=== PATIENT | female | born 1995 | race Caucasian/White ===

== ENCOUNTER → 2018-03-14 12:22 | Outpatient (CLI) | payer OTHER, SELFPAY ==
[2018-03-14 15:21] LABS: Rubella Antibody IgG 6.7 IU/mL (>15)
[2018-03-14 17:56] LABS: Urine N gonorrhoeae NOT DETECTED
[2018-03-14 17:57] LABS: Urine Chlamydia NOT DETECTED
[2018-03-16 14:22] LABS: HSV 2 IGG AB < 0.90 index (< 0.90)
[2018-03-21 09:50] LABS: Rapid Plasma Reagin NON-REACTIVE
== END ==
PROVIDERS: PCP Family Medicine; Visit Provider Family Medicine
DX: Z34.91 Encounter for supervision of normal pregnancy, unspecified, first trimester (principal)
CPT/HCPCS: 36415; 86592; 86695; 86696; 86762; 86787; 87086; 87491; 87591

== ENCOUNTER → 2018-05-12 12:11 | Outpatient (CLI) | payer OTHER, SELFPAY ==
--- NOTE | 2018-05-12 12:11 | DI.US.S_ITS ---
PROCEDURE: US OB >= 14 WEEKS FETUS INDICATIONS: 14 weeks OUTSIDE/PRIOR DATING DATA: Last menstrual period (LMP): Not available. LMP-based estimated date of delivery (LUCIAN): Not available. First dating scan (date and location): 03/14/18. Estimated date of delivery (LUCIAN) from first dating scan: 10/02/18. TECHNIQUE: Real-time scanning was performed of the fetus, with image documentation and biometric measurements. Endovaginal scanning: Not necessary for this study. COMPARISON: None. FINDINGS: General: A single living intrauterine gestation is present. Presentation: Vertex. Placenta: Placental position is anterior, without previa. Amniotic fluid index: 14.5 cm, normal range is 5-24 cm. heart rate: 158 beats per minute. Maternal cervical canal: 4.0 cm long. Normal lower limit is 2.5 cm. biometrics: Biparietal diameter: 4.7 cm, 20 weeks 1 day Head circumference: 17.7 cm, 20 weeks 1 day Abdominal circumference: 14.4 cm, 19 weeks 5 days Femur length: 3.2 cm, 19 weeks 6 days Estimated gestational age from initial scan: 19 weeks 4 days Composite gestational age from present scan: 20 weeks 0 days Estimated weight and percentile: 316 g, 61st percentile Measurement variability for biometric dating: +/- 7 days from 14 weeks to 15 weeks 6 days gestation, +/- 10 days from 16 weeks to 21 weeks 6 days gestation, +/- 2 weeks from 22 weeks to 27 weeks 6 days gestation, +/- 3 weeks for 28 weeks gestation or later. weight reference: 4500 g or EFW >90/95% is considered macrosomia or large for gestational age. EFW <10% is small for gestational age. EFW 5% or less is considered intra-uterine growth restriction. Anatomic survey: Neuro: Ventricles are non-dilated at less than 10 mm. Cisterna magna is normal at 3-11 mm. Cerebellum is normal in size and morphology. Nuchal skin fold: Normal at less than 6 mm between 14-21 weeks gestational age. Face: Nose and lips, facial profile are poorly seen due to positioning. Spine: No evidence for spina bifida. Heart: 4-chambered heart is present, with normal ventricular outflow tracts. Diaphragm: Diaphragm is intact. Stomach: Left-sided stomach is present. Kidneys: No hydronephrosis. Normal is less than 5 mm in 2nd trimester, less than 7 mm in 3rd trimester. Cord: 3-vessel cord has orthotopic insertion. Bladder: Normal in size. Extremities: All 4 extremities identified. IMPRESSION: No anomalies. However, facial profile was not well visualized due to positioning and therefore a limited followup OB ultrasound could be obtained to more accurately assess that area if clinically desired. Delivery date is projected to be centered on 10/02/16. Dictated by: Gui Wayne M.D. on 05/12/2018 at 14:12 Approved by: Gui Wayne M.D. on 05/12/2018 at 14:15
== END ==
PROVIDERS: PCP Family Medicine; Visit Provider Family Medicine
DX: Z34.02 Encounter for supervision of normal first pregnancy, second trimester (principal); Z3A.20 20 weeks gestation of pregnancy
CPT/HCPCS: 76811

== ENCOUNTER → 2018-05-30 12:36 | Outpatient (CLI) | payer OTHER, SELFPAY ==
--- NOTE | 2018-05-30 12:37 | DI.US.S_ITS ---
PROCEDURE: US OB FOLLOW UP INDICATIONS: PROFILE OUTSIDE/PRIOR DATING DATA: Last menstrual period (LMP): Not available. LMP-based estimated date of delivery (LUCIAN): Not available. First dating scan (date and location): 03/14/18. Estimated date of delivery (LUCIAN) from first dating scan: 10/02/18 TECHNIQUE: Real-time scanning was performed of the fetus, with image documentation. Endovaginal scanning: No COMPARISON: [facility], , OB >= 14 WEEKS FETUS, 05/12/2018, 13:01. [facility], , US OB <= 14 WEEKS FETUS, 03/14/2018, 11:48. FINDINGS: A single living intrauterine gestation is present. Presentation: Vertex. Placenta: Placental position is anterior, with marginal previa with the inferior margin of the placenta extending to nearly the internal cervical os level. Amniotic fluid index: Not obtained. heart rate: 155 beats per minute. Maternal cervical canal: 3.4 cm long. Normal lower limit is 2.5 cm. Estimated gestational age from initial scan: 22 weeks 1 day Normal appearance of the facial profile.. IMPRESSION: 1. Single living IUP redemonstrated. 2. Normal facial profile. 3. Marginal placenta previa. Followup recommended. Dictated by: Tavon ROSE Interpreted: Carlee Quintana MD on 05/30/2018 at 13:42 Approved by: Carlee Quintana M.D. on 05/30/2018 at 15:37
== END ==
PROVIDERS: PCP Family Medicine; Visit Provider Family Medicine
DX: O28.3 Abnormal ultrasonic finding on antenatal screening of mother (principal); Z3A.22 22 weeks gestation of pregnancy
CPT/HCPCS: 76816

== ENCOUNTER → 2018-06-15 13:23 | Outpatient (CLI) | payer OTHER, SELFPAY ==
--- NOTE | 2018-06-15 13:24 | DI.US.S_ITS ---
PROCEDURE: US OB FOLLOW UP INDICATIONS: MARGINAL PREVIA OUTSIDE/PRIOR DATING DATA: Last menstrual period (LMP): Not available. LMP-based estimated date of delivery (LUCIAN): Not available. First dating scan (date and location): 03/14/18. Estimated date of delivery (LUCIAN) from first dating scan: 10/02/18. TECHNIQUE: Real-time scanning was performed of the fetus, with image documentation. Endovaginal scanning: No COMPARISON: [facility], OB FOLLOW UP, 05/30/2018, 12:41. FINDINGS: A single living intrauterine gestation is present. Presentation: Vertex. Placenta: Placental position is anterior, without previa. Amniotic fluid index: Not evaluated. heart rate: 137 beats per minute. Maternal cervical canal: 3.4 cm long. Estimated gestational age from initial scan: 24 weeks 3 days. IMPRESSION: Resolved placenta previa with the inferior aspect of the anterior placenta 3.7 cm from the internal cervical os. Dictated by: Tavon Fernandez [facility] Interpreted: Roxanna Mancia MD on 06/15/2018 at 14:47 Approved by: Roxanna Mancia M.D. on 06/15/2018 at 17:20
== END ==
PROVIDERS: PCP Family Medicine; Visit Provider Family Medicine
DX: O44.02 Complete placenta previa NOS or without hemorrhage, second trimester (principal); Z3A.24 24 weeks gestation of pregnancy
CPT/HCPCS: 76816

== ENCOUNTER → 2018-07-11 07:41 | Outpatient (CLI) | payer OTHER, SELFPAY ==
[2018-07-11 09:25] LABS: Add Manual Diff / Slide Review NO; Basophils Percent Auto 0.2 % (0-2); Eosinophils Percent Auto 0.5 % (2-4); Hemoglobin 12.6 g/dL (12.0-16.0); Lymphocytes Percent Auto 11.8 % (25-40); Mean Corpuscular HGB Conc 34.1 % (30-36); Mean Corpuscular Hemoglobin 30.7 PG (26-34); Mean Corpuscular Volume 89.9 fL (80-100); Monocytes Percent Auto 6.8 % (3-14); Neutrophils Absolute Auto 6900 /uL (3000-5900); Neutrophils Percent Auto 80.7 % (50-75); Platelet Count 129 X10^3/uL (150-400); Red Blood Cell Count 4.11 X10^6/uL (4.0-5.2); Red Cell Distribution Width 12.8 % (11.6-14.8); White Blood Cell Count 8.6 X10^3/uL (4.5-11.0)
[2018-07-11 09:46] LABS: GTT (PREG) 1 Hour PP 50gm Dose 78 mg/dL (76-139)
== END ==
PROVIDERS: PCP Family Medicine; Visit Provider Family Medicine
DX: Z34.02 Encounter for supervision of normal first pregnancy, second trimester (principal)
CPT/HCPCS: 36415; 82950; 85025

== ENCOUNTER → 2018-08-09 08:52 | Outpatient (CLI) | payer OTHER, SELFPAY | PROVIDERS: PCP Family Medicine; Visit Provider Family Medicine | DX: O26.843 Uterine size-date discrepancy, third trimester (principal); Z53.9 Procedure and treatment not carried out, unspecified reason ==

== ENCOUNTER → 2018-08-23 11:25 | Outpatient (CLI) | payer OTHER, SELFPAY ==
[2018-08-23 16:17] LABS: Urine N gonorrhoeae NOT DETECTED
[2018-08-23 16:20] LABS: Urine Chlamydia NOT DETECTED
== END ==
PROVIDERS: PCP Family Medicine; Visit Provider Family Medicine
DX: Z34.93 Encounter for supervision of normal pregnancy, unspecified, third trimester (principal); Z3A.34 34 weeks gestation of pregnancy
CPT/HCPCS: 87491; 87591

== ENCOUNTER → 2018-09-06 10:54 | Outpatient (CLI) | payer OTHER, SELFPAY | PROVIDERS: PCP Family Medicine; Visit Provider Family Medicine | DX: Z13.9 Encounter for screening, unspecified (principal) ==

== ENCOUNTER → 2018-09-13 10:32 | Outpatient (CLI) | payer OTHER, SELFPAY | PROVIDERS: PCP Family Medicine; Visit Provider Family Medicine | DX: Z13.9 Encounter for screening, unspecified (principal) ==

== ENCOUNTER 2018-09-28 02:13 | Inpatient (IN) | payer OTHER, SELFPAY ==
[2018-09-28] VITALS (9 sets, daily range): BP systolic 100–120; BP diastolic 69–80; PULSE 65–83; RESP 11–15; TEMP 36.3–36.6; O2SAT 96–100
[2018-09-28 03:15] LABS: Add Manual Diff / Slide Review NO; Basophils Absolute Auto 100 /uL (0-100); Basophils Percent Auto 0.4 % (0-2); Eosinophils Absolute Auto 0 /uL (0-450); Eosinophils Percent Auto 0.4 % (2-4); Hematocrit 36.8 % (36-46); Hemoglobin 12.4 g/dL (12.0-16.0); Lymphocytes Absolute Auto 2600 /uL (1100-4500); Lymphocytes Percent Auto 20.3 % (25-40); Mean Corpuscular HGB Conc 33.7 % (30-36); Mean Corpuscular Hemoglobin 29.3 PG (26-34); Mean Corpuscular Volume 86.9 fL (80-100); Monocytes Absolute Auto 800 /uL (0-900); Monocytes Percent Auto 6.1 % (3-14); Neutrophils Absolute Auto 9300 /uL (1500-7000); Neutrophils Percent Auto 72.8 % (50-75); Platelet Count 159 X10^3/uL (150-400); Red Blood Cell Count 4.24 X10^6/uL (4.0-5.2); Red Cell Distribution Width 12.9 % (11.6-14.8); White Blood Cell Count 12.7 X10^3/uL (4.5-11.0)
[2018-09-28] MEDS: PENICILLIN G POTASSIUM 5,000,000 UNIT in DEXTROSE 5% IN WATER 250 ML IV (03:15)
--- NOTE | 2018-09-28 04:47 | PM.OBHP.1 ---
OB HPI Date/Time Date of admission: 09/28/18 Date Patient Seen: 09/28/18 Time Patient Seen: 04:20 History of Present Condition Chief complaint: OBS : 1 Para: 0 Estimated Date of Delivery: 10/02/18 Estimated Gestational Age (weeks): 39w3d Narrative: Hillary Rao is a 23 year old at 39w3d who presented with regular painful contractions. She reports having contractions starting around 1:30am. Since then, they have been increasing in frequency and intensity. No vaginal bleeding or LOF prior to presentation. She has been feeling baby move regularly. Indications Other reason(s) for admission: active labor History of Present care: good care, initiated at week # (11) and pounds weight gain (71) Dating criteria: LMP confirmed by 1st trimester US Ultrasounds: normal mid trimester US Obstetrical complications: none Preadmission Labs Blood type: A (+) positive -: Antibody screen: negative, GBS status: positive, HBsAG: negative, HIV: negative and RPR/VDLR: negative -: Chlamydia screen: detected (negative ARTIS and negative 3rd trimester screening) and Gonorrhea screen: not detected -: Rubella: not immune and Varicella: immune HCT: 37 HCAB: negative Sequential screen: negative Urine: negative 1 hr GTT: 78 Evaluation Evaluation Baseline heart rate: 150 Variability: Moderate (11-25) monitor accelerations: Present monitor decelerations: Variable Contraction Frequency (minutes): 2 Uterine Contraction Intensity: Strong/Firm Category of Tracing: II Cervical dilation (cm): 8 Cervical effacement (%): 100 station: 0 Laboratory results: Laboratory Tests 09/28/18 02:58 WBC 12.7 H RBC 4.24 Hgb 12.4 Hct 36.8 MCV 86.9 MCH 29.3 MCHC 33.7 RDW 12.9 Plt Count 159 Neut % (Auto) 72.8 Lymph % (Auto) 20.3 L [place] % (Auto) 6.1 Eos % (Auto) 0.4 L Baso % (Auto) 0.4 Neut # (Auto) 9300 H Lymph # (Auto) 2600 [place] # (Auto) 800 Eos # (Auto) 0 Baso # (Auto) 100 Meds Home Medications Medication Instructions Recorded Confirmed Type breast pump #1 each 07/03/18 Rx ranitidine 150 mg capsule 150 mg PO DAILY #30 cap 07/03/18 Rx omeprazole 40 mg capsule,delayed 40 mg PO DAILY #30 cap 08/18/18 Rx release breast pump #1 each 09/05/18 Rx Allergies Allergy/AdvReac Type Severity Reaction Status Date / Time No Known Drug Allergies Allergy Unverified 04/05/18 09:58 Exam Narrative Exam Narrative: Gen: NAD, laying comfortably in bed, appears well CV: RRR, no murmurs Resp: clear to auscultation bilaterally Abd: soft, nondistended, gravid Ext: trace edema Objective Labs Result Diagrams: 09/28/18 02:58 Labs: Laboratory Results - last 24 hr 09/28/18 02:58 WBC 12.7 H RBC 4.24 Hgb 12.4 Hct 36.8 MCV 86.9 MCH 29.3 MCHC 33.7 RDW 12.9 Plt Count 159 Neut % (Auto) 72.8 Lymph % (Auto) 20.3 L [place] % (Auto) 6.1 Eos % (Auto) 0.4 L Baso % (Auto) 0.4 Neut # (Auto) 9300 H Lymph # (Auto) 2600 [place] # (Auto) 800 Eos # (Auto) 0 Baso # (Auto) 100 Assessment and Plan (1) 39 weeks gestation of : Current visit: Yes Status: Acute (2) Active labor: Current visit: Yes Status: Acute Plan: Plan: 23yo at 39w3d who presented in active labor. complicated by chlamydia in the first trimester with negative 3rd trimester screening. GBS positive, Rh positive. - Expectant management, anticipate - GBS positive, start penicillin prophylaxis - FHT with single prolonged deceleration that resolved with positional changes and oxygen, then with several variable decels. Most likely due to rapid cervical change with pt progressing from 2-3cm to 8cm in < 1 hour. All now resolved and FHT reassuring with category I tracing and good accelerations. - Epidural for pain control in place
[2018-09-28] MEDS: LACTATED RINGERS 1,000 ML 100 ML IV ×4 (04:50→17:02)
[2018-09-28] MEDS: PENICILLIN G POTASSIUM 3,000,000 UNIT/50 ML FROZ.PIGGY 100 UNIT IV ×2 (06:50→10:24)
[2018-09-28] MEDS: OXYTOCIN PREMIX 30 UNIT/500 ML PLAST..BAG IV (10:56)
--- NOTE | 2018-09-28 13:09 | PM.OBPNLAB ---
Date/Time Date Patient Seen: 09/28/18 Time Patient Seen: 12:30 Pain Control Pain control: tolerating well and epidural Pelvic Exam Dilation (cm): 10 Effacement (%): 100 station: +2 Amniotic membrane status: Ruptured Contractions Monitor mode: External Pitocin rate (mU/min): 6 Contraction frequency (min): 3 Contraction pattern: Regular Contraction intensity: Strong/Firm Status status: Category l Heart Rate Baseline: 130 Monitor Accelerations: Present Monitor Decelerations: Absent Monitor Variability: Moderate Assessment and Plan Comments: 23yo at 39w3d who presented in active labor. complicated by chlamydia in the first trimester with negative 3rd trimester screening. GBS positive, Rh positive. Pitocin was initiated in the 2nd stage of labor due to significant spacing between contractions. Pt has now been pushing for 3.5 hours with descent from 0 to 2+ station, however with very minimal descent over the past hour. Maternal effort is starting to wane. Dr Rice came to assess for pelvic adequacy. She was noted to have a narrow pelvic inlet laterally, and relatively tight perineal tissue. Discussed with the pt the option of forceps delivery vs , including risks and benefits. There was concern for significant perineal/vaginal lacerations with forceps. The pt elected to proceed with for delivery for failure to descend. The full risks and benefits of were discussed with the pt. Risks including infection, bleeding/hemorrhage, damage to other organs such as the bowel and bladder, and injury to the baby were discussed. The pt did consent to blood transfusion if medically necessary. The pt agreed to surgery, and consent forms were signed. The pt will receive 2g of Ancef prior to surgery. Plan to use epidural for pain control during surgery. FHT remain reassuring.
--- NOTE | 2018-09-28 13:10 | PM.PREOP ---
Pre-operative Note Interval Note History & Physical reviewed/Exam performed by Physician: Yes Changes to H&P: No H&P completed within 30 days and has changed as indicated here:: for failure to descend and prolonged 2nd stage of labor
[2018-09-28] MEDS: CEFAZOLIN 2 GM/100 ML FROZ.PIGGY IV (13:44)
--- NOTE | 2018-09-28 14:07 | SUR.OPER ---
Supine on Padded OR bed, head on pillow, safety belt at thigh, arms secured on padded arm boards at <90 degrees abduction. Bump under right buttock. Legs uncrossed with pillow under knees, gel pad to heels, tape over blanket to lower legs.
--- NOTE | 2018-09-28 14:28 | SUR.OPER ---
OUT COMES ACHIEVED
--- NOTE | 2018-09-28 14:41 | PM.OP.1 ---
Operative Date/Time/Diagnoses Date of procedure: 09/28/18 Time of procedure: 01:45 Pre-op diagnosis: 39w3d gestation GBS positive Rh positive Failure to descend Post-op diagnosis: same Procedure & Clinicians Procedure: Primary Same procedure as scheduled: Yes Indications: Failure to descend Surgeon: Haley Cordova Assistant Director Of Nursing: Louise Rice Click Yes if Unassisted: No Anesthesia Type: Epidural Operative Notes Findings: Normal uterus, ovaries, and tubes Closure Type: primary Specimen(s): none sent Applied: catheter Estimated Blood Loss (mL): 600 Blood products transfused: none Procedure in detail: OPERATIVE COURSE: The patient was taken to the operating room where epidural anesthesia was rebolused and found to be adequate. She was then prepared and draped in the normal sterile fashion in the dorsal supine position with a leftward tilt. Anesthesia was tested and found to be adequate. A Pfannensteil skin incision was then made with the scalpel and carried through to the underlying layer of fascia with the scalpel. The fascia was incised in the midline and the incision extended laterally with the Corona scissors. The superior aspect of the fascial incision was then grasped with Giuliano clamps, elevated, and the underlying rectus muscles dissected off bluntly and sharply where needed. Attention was then turned to the inferior aspect of the incision which, in a similar fashion, was grasped, tented up with Giuliano clamps, and the rectus muscle dissected off bluntly and sharply with Corona scissors. The rectus muscles were then in the midline, and the peritoneum was identified and entered bluntly. The peritoneal incision was then extended with good visualization of the bladder. The bladder blade was then inserted and the vesicouterine peritoneum identified, grasped with pick-ups and entered sharply with the Metzenbaum scissors. The incision was then extended laterally and the bladder flap created digitally. The bladder blade was then reinserted and the lower uterine segment incised in a transverse fashion with the scalpel. The uterine incision was then extended superolaterally by pulling superolaterally on both sides. The bladder blade was removed the 's head was flexed out of ROT position and delivered atraumatically. The nose and mouth were suctioned with bulb suction and the cord was clamped and cut. The was handed off to the waiting NICU staff. Cord blood was collected for Rh status. The placenta was then delivered by manual extraction due to cord avulsion. The uterus was cleared of all clots and debris. The uterine incision was repaired with O-Chromic in a running, locked fashion. A second layer of the same suture was used to obtain excellent hemostasis. The bladder flap was repaired with 2-O Vicryl. The gutters were cleared of all clots and irrigated with warmed saline. Hysterotomy was investigated and found to be hemostatic. The peritoneum was closed with 2-O Vicryl. The fascia was reapproximated with 1-Vicryl in a running fashion. The subcutaneous tissue was reapproximated with 3-O Vicryl. The skin was closed with 4-O Vicryl. ROM APPEARANCE: Clear BABY A DELIVERY TIME: 13:59 BABY A OUTCOME: Viable BABY A SEX: Male BABY A WEIGHT: 9lb1oz BABY A NUCHAL CORD: None BABY A # CORD VESSELS: 3 BABY A 1 MINUTE: 7 BABY A 5 MINUTES: 9 PLACENTA DELIVERY TIME: 14:01 PLACENTAL DELIVERY TYPE: Manual extraction PLACENTA APPEARANCE: Intact SPONGE AND NEEDLE COUNTS: Correct x3. DRESSING: Aquacel ANTICOAGULATION: SCDs applied prior to Surgery: Yes Preop antibiotics given (see MAR). The patient was taken to recovery room having tolerated procedure well. Complications: none Condition: stable Disposition: PACU Plan for aftercare: Normal care
[2018-09-28] MEDS: ACETAMINOPHEN IV 1,000 MG/100 ML VIAL 400 MG IV (14:50)
[2018-09-28] MEDS: fentaNYL 100 MCG/2 ML INJ 50 MCG IV ×4 (14:50→18:03)
[2018-09-28] MEDS: OXYCODONE/ACETAMINOPHEN 5/325 TABLET 2 TAB PO (19:45)
[2018-09-28] MEDS: PANTOPRAZOLE 40 MG TABLET PO (19:46)
[2018-09-28] MEDS: MAG HYDROX/ALUM/SIMETH 30 ML UDC PO (19:47)
[2018-09-28] MEDS: KETOROLAC 30 MG/ML VIAL IV (20:37)
[2018-09-29] MEDS: KETOROLAC 30 MG/ML VIAL IV ×2 (02:35→08:20)
[2018-09-29] MEDS: OXYCODONE/ACETAMINOPHEN 5/325 TABLET 2 TAB PO ×4 (03:57→20:57)
[2018-09-29] MEDS: MAG HYDROX/ALUM/SIMETH 30 ML UDC PO (04:30)
[2018-09-29 06:24] LABS: Add Manual Diff / Slide Review NO; Basophils Absolute Auto 100 /uL (0-100); Basophils Percent Auto 0.8 % (0-2); Eosinophils Absolute Auto 0 /uL (0-450); Eosinophils Percent Auto 0.1 % (2-4); Hemoglobin 11.1 g/dL (12.0-16.0); Lymphocytes Absolute Auto 1600 /uL (1100-4500); Lymphocytes Percent Auto 16.4 % (25-40); Mean Corpuscular HGB Conc 34.6 % (30-36); Mean Corpuscular Hemoglobin 29.9 PG (26-34); Mean Corpuscular Volume 86.5 fL (80-100); Monocytes Absolute Auto 700 /uL (0-900); Monocytes Percent Auto 6.9 % (3-14); Neutrophils Absolute Auto 7200 /uL (1500-7000); Neutrophils Percent Auto 75.8 % (50-75); Platelet Count 113 X10^3/uL (150-400); Red Cell Distribution Width 13.2 % (11.6-14.8); White Blood Cell Count 9.6 X10^3/uL (4.5-11.0)
[2018-09-29] MEDS: PANTOPRAZOLE 40 MG TABLET PO (08:15)
[2018-09-29 08:20] VITALS: TEMP 37.3
[2018-09-29] MEDS: DOCUSATE 250 MG CAPSULE PO (08:31)
[2018-09-29] MEDS: FERROUS GLUCONATE 324 MG TABLET PO (08:31)
[2018-09-29] MEDS: PRENATAL VIT,CALC/IRON/FOLIC 1 TABLET 1 TAB PO (08:31)
--- NOTE | 2018-09-29 13:26 | P.PNOB_ITS ---
Subjective - OB Patient comments: no complaints baby status: doing well feeding status: exclusively breast feeding Narrative: The pt this afternoon reports that her pain is currently 3-4/10. She feels it is adequately controlled. She has not yet been out of bed, and her bee catheter remains in place. As per nursing, the pt has removed to move t hus far. She is passing flatus. Her lochia is decreasing appropriately. Date Patient Seen: 09/29/18 Time Patient Seen: 12:30 Exam Vital Signs (past 8 hours): - 09/29/18 08:20 Temperature 99.1 F Oxygen Delivery Method Room Air Narrative Exam Narrative: Gen: NAD, laying comfortably in bed, appears well, holding very still CV: RRR, no murmurs Resp: clear to auscultation bilaterally Abd: soft, appropriately tender, normoactive bowel sounds, nondistended, dressing with several small (< 1cm) areas of dried blood Ext: trace edema Objective Labs Result Diagrams: 09/29/18 06:10 Labs: Laboratory Results - last 24 hr 09/29/18 06:10 WBC 9.6 RBC 3.70 L Hgb 11.1 L Hct 32.0 L MCV 86.5 MCH 29.9 MCHC 34.6 RDW 13.2 Plt Count 113 L Neut % (Auto) 75.8 H Lymph % (Auto) 16.4 L [place] % (Auto) 6.9 Eos % (Auto) 0.1 L Baso % (Auto) 0.8 Neut # (Auto) 7200 H Lymph # (Auto) 1600 [place] # (Auto) 700 Eos # (Auto) 0 Baso # (Auto) 100 Assessment & Plan (1) 39 weeks gestation of : Status: Acute Current Visit: Yes (2) Active labor: Status: Acute Current Visit: Yes (3) S/P : Status: Acute Current Visit: Yes (4) Failure of descent in labor, delivered, current hospitalization: Status: Acute Current Visit: Yes Plan Comments: 23yo POD #1 s/p primary for failure to descend. Pt doing relatively well , but has not yet ambulated. Pain does not seem to be the issue, more motivation at this point. Will have nursing remove bee catheter now to help prompt to get out of bed. - Normal care - Re-enforced the importance of ambulation in the recovery process. Remove bee now. Up to the bathroom within 1 hour. - Continue support Time Spent With Patient Total time spent is greater than 50% in coordination of care (as documented) at patient's floor/unit and/or counseling patient: 25 - 35 minutes
[2018-09-29] MEDS: IBUPROFEN 600 MG TABLET PO ×2 (15:30→22:16)
[2018-09-29 20:57] VITALS: TEMP 37.1
[2018-09-30 01:07] VITALS: TEMP 36.9
[2018-09-30] MEDS: OXYCODONE/ACETAMINOPHEN 5/325 TABLET 2 TAB PO ×5 (01:07→20:37)
[2018-09-30] MEDS: IBUPROFEN 600 MG TABLET PO ×2 (05:05→14:46)
[2018-09-30 09:56] VITALS: TEMP 36.8
[2018-09-30] MEDS: PRENATAL VIT,CALC/IRON/FOLIC 1 TABLET 1 TAB PO (10:02)
[2018-09-30] MEDS: DOCUSATE 250 MG CAPSULE PO (10:02)
[2018-09-30] MEDS: FERROUS GLUCONATE 324 MG TABLET PO (10:03)
[2018-09-30] MEDS: PANTOPRAZOLE 40 MG TABLET PO (10:03)
--- NOTE | 2018-09-30 10:38 | PM.OBDS.1 ---
Discharge Providers Date of admission: 09/28/18 02:13 Primary care physician: Haley Cordova MD Consults: 09/28/18 15:15 Consult to Network Engineer Routine Comment: Discharge provider: Haley Cordova MD Discharge Date: 10/01/18 Summary Date Patient Seen: 10/01/18 Time Patient Seen: 10:30 Hospital Course: The patient presented in active labor. She received an epidural for pain control. She received adequate GBS prophylaxis with penicillin prior to delivery. She progressed to complete and then pushed for more than 3.5 hr. Due to failure to descend, the decision was made to proceed with primary . The surgery was without complications. She delivered a viable baby boy a at 1:59 p.m. on 09/28/2018 with Apgars 7/9. After surgery, the patient recovered without issues. At the time of discharge she was voiding, ambulating, passing flatus without difficulty. Her lochia was decreasing appropriately. She is breast-feeding with good latch. Her pain was well controlled. She will be discharged home to follow up in clinic in 1 week for incision check. She is considering OCPs for control, but is undecided. Peripartum Data Infant Delivery Method: Section Procedures: Primary complications: none 1: Gender: Male Disposition of : home Discharge Diagnosis (1) 39 weeks gestation of : Status: Acute (2) Active labor: Status: Acute (3) S/P : Status: Acute (4) Failure of descent in labor, delivered, current hospitalization: Status: Acute Status at Discharge Functional status at discharge: independent ambulation Overall status at discharge: patient is progressing back to baseline Time Spent with Patient Total time spent providing and/or coordinating discharge services: Greater than 30 minutes Objective Labs Result Diagrams: 09/29/18 06:10 Discharge Plan Discharge Plan Patient Disposition: Home Discharge Med Rec/Prescriptions Prescriptions: New acetaminophen 325 mg Tablet 650 mg PO Q6HR PRN (Reason: As Needed For Fever/Mild Pain) Qty: 30 RF: 0 oxycodone-acetaminophen 5-325 mg Tablet 2 tab PO Q4HR PRN (Reason: Pain, Severe (7-10)) Qty: 50 RF: 0 ibuprofen 600 mg Tablet 600 mg PO Q6HR PRN (Reason: As Needed For Fever/Mild Pain) Qty: 30 RF: 0 docusate sodium 250 mg Capsule 250 mg PO DAILY Qty: 30 RF: 0 ferrous gluconate 324 mg (38 mg iron) Tablet 324 mg PO DAILY Qty: 30 RF: 0 Prenatabs Rx 29 mg iron- 1 mg Tablet 1 tab PO DAILY Qty: 30 RF: 0 Continued omeprazole 40 mg capsule,delayed release(DR/EC) 40 mg PO DAILY Qty: 30 RF: 3 breast pump device .ROUTE .MEDSUPPLY Qty: 1 RF: 0 breast pump device .Route .MEDSUPPLY Qty: 1 RF: 0 Discontinued ranitidine HCl 150 mg capsule 150 mg PO DAILY Qty: 30 RF: 2 Follow up/Referrals: Haley Cordova MD [Primary Care Provider] - 1 Week (October 06Tuesday, at 12:15pm with Dr Cordova for dressing removal and incision check. November 10Tuesday, at 11:30am with Dr Cordova for 6 week post check) Provider Discharge Instructions Diet: Diet as Tolerated and Regular Activity: No intercourse for 6 weeks No driving until able to rotate easily and off narcotic pain medications No heavy lifting Skin/Wound/Dressing Care Report to your healthcare provider any signs of infection, such as:: chills, fever, increased pain, unusual drainage and unusual redness Visit Report/Discharge Packet Instructions: DI for Discharge Data Primary Care Provider: Haley Cordova Attending Provider: Haley Cordova Admit Date/Time: 09/28/18 02:13
--- NOTE | 2018-09-30 10:59 | PM.OBPN.1 ---
Subjective - OB Narrative: The pt is overall doing well. She is voiding, ambulating, and passing flatus. Her lochia is decreasing appropriately. Her pain is appropriately controlled. She has no concerns today. Exam Vital Signs (past 8 hours): - 09/30/18 09:56 Temperature 98.2 F Oxygen Delivery Method Room Air Narrative Exam Narrative: Gen: NAD, sitting comfortably in bed, appears well CV: RRR, no murmurs Resp: clear to auscultation bilaterally Abd: soft, appropriately tender, normoactive bowel sounds, fundus firm and below the umbilicus, dressing c/d/i Ext: no edema Objective Labs Result Diagrams: 09/29/18 06:10 Assessment & Plan (1) 39 weeks gestation of : Status: Acute Current Visit: Yes (2) Active labor: Status: Acute Current Visit: Yes (3) S/P : Status: Acute Current Visit: Yes (4) Failure of descent in labor, delivered, current hospitalization: Status: Acute Current Visit: Yes Plan Comments: 23yo POD #2 s/p primary for failure to descend. Pt doing well , no complications. - Normal care - Continue support Time Spent With Patient Total time spent is greater than 50% in coordination of care (as documented) at patient's floor/unit and/or counseling patient: 15-24 minutes
[2018-09-30 20:37] VITALS: TEMP 36.4
[2018-10-01 01:40] VITALS: TEMP 36.5
[2018-10-01] MEDS: OXYCODONE/ACETAMINOPHEN 5/325 TABLET 2 TAB PO ×2 (01:40→09:22)
[2018-10-01 01:43] VITALS: TEMP 36.5
[2018-10-01] MEDS: IBUPROFEN 600 MG TABLET PO ×2 (01:43→09:22)
[2018-10-01] MEDS: DOCUSATE 250 MG CAPSULE PO (09:08)
[2018-10-01] MEDS: PANTOPRAZOLE 40 MG TABLET PO (09:08)
[2018-10-01] MEDS: PRENATAL VIT,CALC/IRON/FOLIC 1 TABLET 1 TAB PO (09:08)
[2018-10-01] MEDS: FERROUS GLUCONATE 324 MG TABLET PO (09:08)
[2018-10-01 10:32] VITALS: BP 136/23
[2018-10-01 10:34] VITALS: BP 120/78; PULSE 102; RESP 16; TEMP 37
[2018-10-01] MEDS: MEASLES,MUMPS,RUBELLA VACC/PF 0.5 ML VIAL SUBCUT (11:54)
== END 2018-10-01 12:16 | disposition home or self-care (01) | DRG 788 ==
PROVIDERS: Admitting Provider Family Medicine; PCP Family Medicine; Visit Provider Family Medicine
PROC: 10D00Z1 Extraction of Products of Conception, Low, Open Approach (ICD-10-PCS; CPT 59514; principal; 2018-09-28 13:30)
DX: O99.824 Streptococcus B carrier state complicating childbirth (principal); Z37.0 Single live birth; Z3A.39 39 weeks gestation of pregnancy; O62.1 Secondary uterine inertia
CPT/HCPCS: 01967; 01968; 36415; 59050; 59510; 59514; 76815; 85025; 86850; 86900; 86901; G0379; J0131; J0690; J1885; J2540; J2590; J3010

== ENCOUNTER 2018-10-30 12:34 | Emergency (ER) | payer OTHER, SELFPAY ==
[2018-10-30 13:37] VITALS: BP 102/66; PULSE 73; RESP 12; TEMP 37; O2SAT 99
--- NOTE | 2018-10-30 15:28 | ED.SKABFB ---
HPI - Skin/Abscess/Foreign Bdy <Brianna Dubose PA-C - Last Filed: 10/30/18 22:00> General Chief complaint: Skin/Abscess/Foreign Body Stated complaint: 2 DIFFERENT RASHES Time Seen by Provider: 10/30/18 15:27 Source: patient Mode of arrival: ambulatory Limitations: no limitations History of Present Illness HPI narrative: This 23-year-old female complains of worsening rash and itching in the last week. She gave 1 month ago and had PUPP during and states that this rash is the same, still patchy but in more areas. She has tried topical steroids including triamcinolone and betamethasone, but rash has been spreading in the last week and making her miserable with itching. She is avoiding antihistamines due to concern about drying up her breast milk. She has not developed any rash on her face. She has not had any dyspnea or wheeze. She denies fever. She change to cold tar soap for the rash but otherwise no changes in any topical products or other exposures. No new fever or illness. Related Data Previous Rx's Medication Instructions Recorded breast pump #1 each 07/03/18 omeprazole 40 mg capsule,delayed 40 mg PO DAILY #30 cap 08/18/18 release breast pump #1 each 09/05/18 acetaminophen 650 mg PO Q6HR PRN #30 tab 09/30/18 docusate sodium 250 mg PO DAILY #30 cap 09/30/18 ferrous gluconate 324 mg PO DAILY #30 tab 09/30/18 ibuprofen 600 mg PO Q6HR PRN #30 tab 09/30/18 oxycodone-acetaminophen 2 tab PO Q4HR PRN #50 tab 09/30/18 vit,[id number] 1 tab PO DAILY #30 tab 09/30/18 [Prenatabs Rx] triamcinolone acetonide 0.1 % 1 applictn TOP BID #30 gram 10/27/18 topical cream prednisone 30 mg PO DAILY #10 tab 10/30/18 Allergies Allergy/AdvReac Type Severity Reaction Status Date / Time No Known Drug Allergies Allergy Unverified 10/06/18 13:37 Review of Systems <Brianna Dubose PA-C - Last Filed: 10/30/18 22:00> Review of Systems ROS Unobtainable: All systems reviewed & are unremarkable except as noted in HPI and below PFSH <Brianna Dubose PA-C - Last Filed: 10/30/18 22:00> Medical History PUPP (pruritic urticarial papules and plaques of ) (Acute) Surgical History S/P (Resolved) Social History Smoking Status: Never smoker Social History Smoking Status: Never smoker Exam <Brianna Dubose PA-C - Last Filed: 10/30/18 22:00> Narrative Exam Narrative: GENERAL APPEARANCE: Patient sitting comfortably, in no distress. HEENT: PERRL, EOMI, normal oropharynx NECK: Supple, no masses LUNGS: Clear to auscultation bilaterally. HEART: Rate and rhythm regular without murmur, normal S1 and S2, no S3 or S4. DERMATOLOGIC: Patchy maculopapular wheals on the proximal legs, back, left breast, and a few on the forearms. None on the neck or face Initial Vital Signs Initial Vital Signs: Vital Signs Temperature 98.6 F 10/30/18 13:37 Pulse Rate 73 10/30/18 13:37 Respiratory Rate 12 10/30/18 13:37 Blood Pressure 102/66 10/30/18 13:37 Pulse Oximetry 99 10/30/18 13:37 <Danielle Rubi DO - Last Filed: 10/31/18 08:14> Initial Vital Signs Initial Vital Signs: Vital Signs Temperature 98.6 F 10/30/18 13:37 Pulse Rate 73 10/30/18 13:37 Respiratory Rate 12 10/30/18 13:37 Blood Pressure 102/66 10/30/18 13:37 Pulse Oximetry 99 10/30/18 13:37 Course <Brianna Dubose PA-C - Last Filed: 10/30/18 22:00> Vital Signs - 8 hr 10/30/18 13:37 Temperature 98.6 F Pulse Rate 73 Respiratory Rate 12 Blood Pressure 102/66 Pulse Oximetry 99 <Danielle Rubi DO - Last Filed: 10/31/18 08:14> Vital Signs - 8 hr 10/30/18 13:37 Temperature 98.6 F Pulse Rate 73 Respiratory Rate 12 Blood Pressure 102/66 Pulse Oximetry 99 Discharge Plan Departure Patient Disposition: Home Clinical Impression: PUPP (pruritic urticarial papules and plaques of ) Discharge Date/Time: 10/30/18 16:18 Interventions: ED Discharge Assessment Last Done: 10/30/18 16:17 Instructions: DI for Hives Activity Restrictions/Additional Instructions: Since the topical steroids are not effective for you I have prescribed prednisone to help with your rash and itching. Please start this as soon as you pick it up and hopefully you will have some improvement by tomorrow. You may wish to try cool oatmeal baths and calamine lotion as well. Please follow-up with your PCP in the next few days to determine your level of improvement and how long you should continue the steroids Prescriptions: New prednisone 20 mg tablet 30 mg PO DAILY Qty: 10 RF: 0 No Action omeprazole 40 mg capsule,delayed release(DR/EC) 40 mg PO DAILY Qty: 30 RF: 3 breast pump device .ROUTE .MEDSUPPLY Qty: 1 RF: 0 triamcinolone acetonide 0.1 % cream 1 applictn TOP BID Qty: 30 RF: 1 breast pump device .Route .MEDSUPPLY Qty: 1 RF: 0 acetaminophen 325 mg Tablet 650 mg PO Q6HR PRN (Reason: As Needed For Fever/Mild Pain) Qty: 30 RF: 0 oxycodone-acetaminophen 5-325 mg Tablet 2 tab PO Q4HR PRN (Reason: Pain, Severe (7-10)) Qty: 50 RF: 0 ibuprofen 600 mg Tablet 600 mg PO Q6HR PRN (Reason: As Needed For Fever/Mild Pain) Qty: 30 RF: 0 docusate sodium 250 mg Capsule 250 mg PO DAILY Qty: 30 RF: 0 ferrous gluconate 324 mg (38 mg iron) Tablet 324 mg PO DAILY Qty: 30 RF: 0 Prenatabs Rx 29 mg iron- 1 mg Tablet 1 tab PO DAILY Qty: 30 RF: 0 Referrals: Haley Cordova MD [Primary Care Provider] - <Danielle Rubi DO - Last Filed: 10/31/18 08:14> Cosign ED Attending Calebature Attestation: I was immediately available in the department for consultation. Documentation has been reviewed. I agree with assessment and plan.
== END 2018-10-30 16:18 | disposition home or self-care (01) ==
PROVIDERS: Emergency Provider Internal Medicine; PCP Family Medicine
DX: L29.8 Other pruritus (principal); O26.86 Pruritic urticarial papules and plaques of pregnancy (PUPPP)
CPT/HCPCS: 99282

== ENCOUNTER → 2018-12-15 11:48 | Outpatient (CLI) | payer OTHER, SELFPAY ==
[2018-12-15 13:47] LABS: HCG Quantitative /Beta subunit < 2.39 mIU/mL
== END ==
PROVIDERS: PCP Family Medicine; Visit Provider Family Medicine
DX: Z72.51 High risk heterosexual behavior (principal)
CPT/HCPCS: 36415; 84702

== ENCOUNTER 2019-01-02 11:05 | Emergency (ER) | payer OTHER, SELFPAY ==
[2019-01-02 11:10] VITALS: BP 122/72; PULSE 72; RESP 16; TEMP 36.4; O2SAT 100
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
== END 2019-01-02 14:52 | disposition home or self-care (01) ==
PROVIDERS: Emergency Provider Emergency Medicine; PCP Family Medicine
DX: R51 Headache (principal); T14.8XXA Other injury of unspecified body region, initial encounter; Y08.89XA Assault by other specified means, initial encounter
CPT/HCPCS: 70360; 70450; 99283; 99284

== ENCOUNTER → 2022-04-01 10:47 | Outpatient (CLI) | payer OTHER, SELFPAY ==
--- NOTE | 2022-04-01 10:49 | DI.MRI.S_ITS ---
PROCEDURE: MR HEAD/BRAIN WO/W CON INDICATIONS: Post concussive syndrome TECHNIQUE: Noncontrast axial T1 spin echo, axial T2 fast spin echo, sagittal and axial FLAIR, coronal T2 fast spin echo, axial gradient echo, axial diffusion and ADC through the brain. After the administration of contrast, axial and coronal and sagittal 3D VIBE or T1 spin echo with fat saturation through the brain. COMPARISON: None. FINDINGS: Image quality: Excellent. CSF Spaces: Basal cisterns are patent. No extra-axial fluid collections. Ventricles are normal in size and shape. Brain: No midline shift. No intracranial bleeds or masses. No abnormal intracranial enhancement. The brainstem appears normal. Diffusion-weighted images demonstrate no acute ischemic insults. No chronic ischemic insults. Normal intravascular flow voids are present. Skull and face: Calvarial marrow is normal in signal. Orbits appear normal. Sinuses: Sinuses and mastoids appear clear. IMPRESSION: No imaging explanation is found for this patient's presenting symptoms. No intracranial hemorrhage is seen. No brain edema. No masses or abnormal enhancement can be seen. Dictated by: Tucker Ordaz M.D. on 04/01/2022 at 11:06 Approved by: Tucker Ordaz M.D. on 04/01/2022 at 11:07
== END ==
PROVIDERS: PCP Family Medicine; Referring Provider Family Medicine; Visit Provider Family Medicine
DX: F07.81 Postconcussional syndrome (principal)
CPT/HCPCS: 70553

== ENCOUNTER → 2022-04-02 13:29 | Outpatient (CLI) | payer OTHER, SELFPAY ==
[2022-04-02 16:13] LABS: TSH w/ Reflex to FT4 1.11 uIU/mL (0.47-4.68)
[2022-04-28 14:00] LABS: Cardiolipin IgA Negative
== END ==
PROVIDERS: PCP Family Medicine; Referring Provider Family Medicine; Visit Provider Family Medicine
DX: R53.83 Other fatigue (principal); R63.5 Abnormal weight gain; R52 Pain, unspecified
CPT/HCPCS: 36415; 83520; 84443; 86147; 86148